=== PATIENT | female | born 1990 | race American Indian/Alaskan Native ===

== ENCOUNTER 2020-06-21 22:30 | Emergency (ER) | payer MEDICAID ==
[2020-06-21 23:08] LABS: Hematocrit 37.6 % (30.3-42.9); Hemoglobin 12.9 gm/dl (10.1-14.3); Mean Corpuscular HGB Conc 34 % (30-34); Mean Corpuscular Volume 77 fl (79-97); Platelet Count 325 K/mm3 (140-440); Red Blood Count 4.87 M/mm3 (3.65-5.03)
[2020-06-21 23:23] LABS: Lymphocytes % (Auto) 40.9 % (13.4-35.0); Monocytes % (Auto) 6.1 % (0.0-7.3)
[2020-06-21 23:24] LABS: Basophils # (Auto) 0.1 K/mm3 (0.0-0.1); Basophils % (Auto) 0.6 % (0.0-1.8); Eosinophils # (Auto) 0.2 K/mm3 (0.0-0.4); Eosinophils % (Auto) 1.5 % (0.0-4.3); Monocytes # (Auto) 0.7 K/mm3 (0.0-0.8)
[2020-06-21 23:36] LABS: Alanine Aminotransferase 28 units/L (7-56); Albumin 4.1 g/dL (3.9-5); BUN/Creatinine Ratio 9; Blood Urea Nitrogen 7 mg/dL (7-17); Calcium 9.5 mg/dL (8.4-10.2); Hemolysis Index 8
[2020-06-22 03:53] LABS: Bilirubin,Urine NEG (Negative); Blood,Urine NEG (Negative); Color,Urine Yellow (Yellow); Mucus,Urine 3+ /HPF; Protein,Urine <15 mg/dL mg/dL (Negative); Urobilinogen,Urine < 2.0 mg/dL (<2.0)
[2020-06-22 03:54] LABS: HCG Qualitative,Urine Negative (Negative)
[2020-06-22] MEDS ORDERED: ONDANSETRON 4 MG/2 ML INJ IV ONE (04:01)
[2020-06-22] MEDS ORDERED: MORPHINE 4 MG/1 ML INJ IV ONE (04:01)
--- NOTE | 2020-06-22 04:08 | Emergency Department Report ---
ED Abdominal Pain HPI - General Chief Complaint: Abdominal Pain Stated Complaint: UPPER RT SIDE PAIN Time Seen by Provider: 06/22/20 02:28 Source: patient, family Mode of arrival: Ambulatory Limitations: No Limitations - History of Present Illness Initial Comments: 29-year-old -[place] female presents to the emergency room complaining of right upper side pain for 2 years. Patient states that the last few days the pain has gotten worse. Patient states that she had vomited twice today. Patient states that she has seen a doctor in the past for and was scheduled to have a CT scan but she was not able to have done. Patient reports that the pain is so intense that she is not able to wear a bra. But when she does not wear a bra she has to hold her breasts and her side of her chest and upper abdomen secondary to pain. Patient reports that the pain is so bad that she does not even have good quality life. Patient denies any suicidal homicidal ideation. Onset/Timin -: days(s) (2 days), year(s) Location: RUQ Migration to: R flank Severity: severe Severity scale (0 -10): 9 Quality: aching, sharp, burning Consistency: constant Improves With: nothing Worsens With: movement Associated Symptoms: vomiting Treatments Prior to Arrival: other - Related Data LMP Date: 05/22/20 Home Medications Medication Instructions Recorded Confirmed Last Taken No Known Home Medications [No 01/25/17 01/25/17 Unknown Reported Home Medications] Allergies Allergy/AdvReac Type Severity Reaction Status Date / Time No Known Allergies Allergy Verified 03/21/16 12:55 ED Review of Systems ROS: Stated complaint: UPPER RT SIDE PAIN Other details as noted in HPI Comment: All other systems reviewed and negative ED Past Medical Hx - Past Medical History Previous Medical History?: No - Surgical History Hx Cholecystectomy: Yes (2015) - Social History Smoking Status: Never Smoker Substance Use Type: Alcohol, Marijuana - Medications Home Medications: Home Medications Medication Instructions Recorded Confirmed Last Taken Type No Known Home Medications [No 01/25/17 01/25/17 Unknown History Reported Home Medications] ED Physical Exam - General Limitations: No Limitations General appearance: alert, in distress, other (Tearful) - Head Head exam: Present: atraumatic, normocephalic - Eye Eye exam: Present: normal appearance - ENT ENT exam: Present: mucous membranes moist - Respiratory Respiratory exam: Present: normal lung sounds bilaterally, chest wall tenderness (Right side under breast and right upper flank). Absent: respiratory distress - Cardiovascular Cardiovascular Exam: Present: regular rate - GI/Abdominal GI/Abdominal exam: Present: soft, tenderness (Right upper quadrant), normal bowel sounds - Extremities Exam Extremities exam: Present: normal inspection, full ROM - Back Exam Back exam: Present: normal inspection, full ROM - Neurological Exam Neurological exam: Present: alert, oriented X3, normal gait - Psychiatric Psychiatric exam: Present: normal affect, normal mood - Skin Skin exam: Present: warm, dry, intact, normal color. Absent: rash ED Course Vital Signs 06/21/20 06/22/20 22:41 04:09 Temperature 98.0 F Pulse Rate 99 H Respiratory 15 18 Rate Blood Pressure 138/86 O2 Sat by Pulse 94 Oximetry ED Medical Decision Making - Lab Data Result diagrams: 06/21/20 22:55 06/21/20 22:55 - Radiology Data Radiology results: report reviewed Ordering Physician: KYLE MARKS Date of Service: 06/22/20 Procedure(s): CT chest w con Accession Number(s): [id number] cc: KYLE MARKS CT chest w con INDICATION: Right Chest and R.U.Q. abd pain and tenderness tenderness. TECHNIQUE: All CT scans at this location are performed using the following dose modulation technique: Automated exposure control. CONTRAST: Omnipaque 300, 100 cc IV injection. COMPARISON: None available. FINDINGS: The lungs contain no mass, infiltrate or pleural fluid. Negative for mediastinal mass or adenopathy. Imaging the upper abdomen demonstrates a 3.4 cm homogeneously enhancing lesion within the anterior segment of the right hepatic lobe. Status post previous cholecystectomy. No biliary dilatation. IMPRESSION: 1. Negative for lung mass or infiltrate. 2. Incidental enhancing hepatic lesion. Main differential diagnosis includes hepatic adenoma and FNH. Signer Name: Aramis Cristobal MD Signed: 06/22/2020 5:00 AM Workstation Name: [id number] Transcribed By: MICHELLE Dictated By: Aramis Cristobal MD Electronically Authenticated By: Aramis Cristobal MD Signed Date/Time: 06/22/20 0500 DD/ 0455 TD/TT: - Medical Decision Making 1-year 1-month-old female brought in by dad stating that the patient fell off the bed and has a knot to the left side of her forehead. Father states that the patient has had normal behavior no nausea no vomiting eating well drinking well. He states this happened about 1230 this morning and came straight to the emergency room. Reports patient is up-to-date on vaccines and has no other concerns. CBC shows mild elevation of her WBC of 11.6 chemistries within normal limits. Urinalysis within normal limits negative test. CT chest with contrast has been ordered which they report were able to go as low as adrenal glands which is great for review in the right upper quadrant. Patient is given morphine 4 mg Zofran 4 mg for pain management. Critical care attestation.: If time is entered above; I have spent that time in minutes in the direct care of this critically ill patient, excluding procedure time. ED Disposition Clinical Impression: Hepatic lesion, Chronic RUQ pain Disposition: - TO HOME OR SELFCARE Is pt being admited?: No Does the pt Need Aspirin: No Condition: Stable Instructions: Abdominal Pain (ED) Additional Instructions: CT scan is negative for any acute findings it does show a hepatic lesion. I recommend for you to follow-up with a hospitality services manager I have listed 1 below for your convenience. He can try taking ibuprofen for your pain. Referrals: PRIMARY CAREMD [Primary Care Provider] - 3-5 Days WELLINGTON DOLAN MD [Staff Physician] - 3-5 Days [facility] [Provider Group] - 3-5 Days Forms: Work/School Release Form(ED)
--- NOTE | 2020-06-22 05:05 | Cat Scan Report ---
CT chest w con INDICATION: Right Chest and R.U.Q. abd pain and tenderness tenderness. TECHNIQUE: All CT scans at this location are performed using the following dose modulation technique: Automated exposure control. CONTRAST: Omnipaque 300, 100 cc IV injection. COMPARISON: None available. FINDINGS: The lungs contain no mass, infiltrate or pleural fluid. Negative for mediastinal mass or ad enopathy. Imaging the upper abdomen demonstrates a 3.4 cm homogeneously enhancing lesion within the anterior se gment of the right hepatic lobe. Status post previous cholecystectomy. No biliary dilatation. IMPRESSION: 1. Negative for lung mass or infiltrate. 2. Incidental enhancing hepatic lesion. Main differential diagnosis includes hepatic adenoma and FNH. Signer Name: Aramis Cristobal MD Signed: 06/22/2020 5:00 AM Workstation Name: [id number]
[2020-06-22 07:04] VITALS: BP 103/59
== END 2020-06-22 06:20 | disposition home or self-care (01) ==
LOC: ED 22:30
DX: K76.89 Other specified diseases of liver (principal); G89.29 Other chronic pain
CPT/HCPCS: 36415; 71260; 80053; 81001; 81025; 85025; 96374; 96375; 99284; J2270; J2405; Q9967

== ENCOUNTER 2022-03-13 12:37 | Emergency (ER) | payer MEDICAID ==
[2022-03-13 13:15] VITALS: BP 120/67
[2022-03-13 14:46] LABS: Hematocrit 35.8 % (30.3-42.9); Hemoglobin 12.1 gm/dl (10.1-14.3); Mean Corpuscular HGB Conc 34 % (30-34); Mean Corpuscular Volume 78 fl (79-97); Platelet Count 299 K/mm3 (140-440); Red Blood Count 4.58 M/mm3 (3.65-5.03)
[2022-03-13 15:02] LABS: INR 0.9 (0.87-1.13)
[2022-03-13 15:03] LABS: Partial Thromboplastin Time 28.7 Sec. (24.2-36.6)
[2022-03-13 16:07] LABS: Blood Urea Nitrogen 5 mg/dL (7-17)
[2022-03-13 16:08] LABS: BUN/Creatinine Ratio 7; Hemolysis Index 18
[2022-03-13 17:33] LABS: Total Cells Counted 100
[2022-03-13 17:34] LABS: Basophils % (Manual) 0 % (0.0-1.8); Eosinophils % (Manual) 0 % (0.0-4.3); Platelet Estimate Consistent w Auto; RBC Morphology Normal
== END 2022-03-13 19:00 | disposition left against medical advice (07) ==
LOC: ED 12:37
DX: O20.8 Other hemorrhage in early pregnancy (principal); R07.9 Chest pain, unspecified; Z53.21 Procedure and treatment not carried out due to patient leaving prior to being seen by health care provider
CPT/HCPCS: 36415; 80048; 84702; 85007; 85025; 85610; 85730